=== PATIENT | male | born 1985 | race Caucasian/White ===

== ENCOUNTER 2016-11-05 13:02 | Emergency (ER) | payer BC ==
[2016-11-05 13:12] VITALS: BP 110/70; PULSE 86; RESP 18; TEMP 98.6; O2SAT 100; BMI 23.4
--- NOTE | 2016-11-05 13:28 | ED PDOC ---
Arrival/HPI - General Chief Complaint: Abnormal Skin Integrity Time Seen by Provider: 11/05/16 13:13 Historian: Patient - History of Present Illness Narrative History of Present Illness (Text): 11/05/16 13:13 31 y/o male, no significant pmh, nkda, c/o rt. gluteal pain x 3 days with no fall or trauma. pt. stated that this feels like a pimple, painful to sit on , no fever or chills, no headache or night sweat, no IV drug abuse, no recent IM injection to the site, no headache, no night sweat, no dizziness, no other medical or psychological complaints. Past Medical History - Provider Review Nursing Documentation Reviewed: Yes - Psychiatric Hx Substance Use: No Family/Social History - Physician Review Nursing Documentation Reviewed: Yes Family/Social History: Unknown Family HX Smoking Status: Heavy Smoker > 10 Cigarettes Daily Hx Alcohol Use: Yes Frequency of alcohol use: Socially Hx Substance Use: No Allergies/Home Meds Allergies/Adverse Reactions: Allergies No Known Allergies Allergy (Verified 11/05/16 13:12) Review of Systems - Review of Systems Constitutional: absent: Fatigue, Fevers Eyes: absent: Vision Changes ENT: absent: Hearing Changes Respiratory: absent: SOB, Cough Cardiovascular: absent: Chest Pain Gastrointestinal: absent: Abdominal Pain, Diarrhea, Nausea, Vomiting Skin: Rash, Abscess, Cellulitis. absent: Pruritis, Skin Lesions, Laceration, Ulcer Neurological: absent: Headache, Speech Changes, Facial Droop Physical Exam Vital Signs Reviewed: Yes Vital Signs Temp Pulse Resp BP Pulse Ox 11/05/16 13:09 98.6 F 86 18 110/70 100 Temperature: Afebrile Blood Pressure: Normal Pulse: Regular Respiratory Rate: Normal Appearance: Positive for: Well-Appearing, Non-Toxic, Comfortable Pain Distress: Moderate Mental Status: Positive for: Alert and Oriented X 3 - Systems Exam Head: Present: Atraumatic, Normocephalic Pupils: Present: PERRL Extroacular Muscles: Present: EOMI Conjunctiva: Present: Normal Mouth: Present: Moist Mucous Membranes Neck: Present: Normal Range of Motion Respiratory/Chest: Present: Clear to Auscultation, Good Air Exchange. No: Respiratory Distress, Accessory Muscle Use Cardiovascular: Present: Regular Rate and Rhythm, Normal S1, S2. No: Murmurs Abdomen: Present: Normal Bowel Sounds. No: Tenderness, Distention, Peritoneal Signs Back: Present: Normal Inspection Upper Extremity: Present: Normal Inspection. No: Cyanosis, Edema Lower Extremity: Present: Normal Inspection. No: Edema Neurological: Present: GCS=15, Speech Normal, Motor Func Grossly Intact, Gait Normal, Memory Normal Skin: Present: Warm, Dry, Rashes (rt. gluteal zunilda cheek region visible approx. 4cm diameter erythematous with mild fluctuant, no streaking or ulcer, no regional lymphenapathy. ), Normal Color Psychiatric: Present: Alert, Oriented x 3, Normal Insight, Normal Concentration Medical Decision Making ED Course and Treatment: 11/05/16 13:43 -bedside sonogram confirm there is approx. [id number] underlying abscess with 1.5cm underneath the skin. -sensation intact, motor 5/5, clean with betadine and saline, sterile procedure , #11 blade made 1cm incision wound with approx. 1.5cc purulant abscess drained , irrigated with 30cc of normal saline, 1/4" iodofoam packing, hemostasis obtained, bacitracin and gauze dressing, sensation intact, motor 5/5. -keflex, bactrim ds, motrin -Discharge home with keflex, bactrim ds, motrin, keep the dressing dry and clean for 2 days and return to the ER in 2 days for wound check and packing change, follow up with your own pmd and general surgeon within 4 days, return to the ER for any new or worsening signs or symptoms. - PA / ELECT[employer]IC TECH[employer]OLOGIST / Resident Statement MD/DO has reviewed & agrees with the documentation as recorded. Disposition/Present on Arrival - Present on Arrival Any Indicators Present on Arrival: No History of DVT/PE: No History of Uncontrolled Diabetes: No Urinary Catheter: No History of Decub. Ulcer: No History Surgical Site Infection Following: None - Disposition Have Diagnosis and Disposition been Completed?: Yes Diagnosis: Abscess, Cellulitis Disposition: HOME/ ROUTINE Disposition Time: 13:45 Patient Plan: Discharge Condition: GOOD Discharge Instructions (ExitCare): Cellulitis (ED) Additional Instructions: Discharge home with keflex, bactrim ds, motrin, keep the dressing dry and clean for 2 days and return to the ER in 2 days for wound check and packing change, follow up with your own pmd and general surgeon within 4 days, return to the ER for any new or worsening signs or symptoms. Prescriptions: Cephalexin [cephalexin] 500 mg PO QID #40 cap Ibuprofen [Motrin Tab] 600 mg PO QID #30 tab Sulfamethoxazole/Trimethoprim [Bactrim Ds Tablet] 1 each PO BID #20 tablet Referrals: Sergei Matos MD [Medical Doctor] - Follow up with primary [facility] [place] - Follow up with primary Forms: WORK NOTE
[2016-11-05] MEDS ORDERED: Tmp-Smz 800 mg-160 mg DS Tab PO STA (13:40)
== END 2016-11-05 14:07 | disposition home or self-care (01) ==
LOC: ED 13:02
DX: L02.31 Cutaneous abscess of buttock (principal); L03.317 Cellulitis of buttock

== ENCOUNTER 2016-11-08 10:10 | Emergency (ER) | payer BC ==
[2016-11-08 10:53] VITALS: RESP 18; TEMP 98.8; BMI 22.7
--- NOTE | 2016-11-08 11:04 | ED PDOC ---
Arrival/HPI - General Chief Complaint: Wound Check Time Seen by Provider: 11/08/16 10:11 Historian: Patient - History of Present Illness Narrative History of Present Illness (Text): 11/08/16 11:01 31yo male present to ED for packing removal. He had an I&D here 3days ago and came back to ED today for packing removal. He denies fever, chills, any other complaint. Past Medical History - Provider Review Nursing Documentation Reviewed: Yes - Infectious Disease Hx of Infectious Diseases: None - Psychiatric Hx Substance Use: No - Anesthesia Hx Anesthesia: No Hx Anesthesia Reactions: No Hx Malignant Hyperthermia: No Family/Social History - Physician Review Nursing Documentation Reviewed: Yes Family/Social History: Unknown Family HX Smoking Status: Heavy Smoker > 10 Cigarettes Daily Hx Alcohol Use: Yes Hx Substance Use: No Allergies/Home Meds Allergies/Adverse Reactions: Allergies No Known Allergies Allergy (Verified 11/05/16 13:12) Review of Systems - Physician Review All systems were reviewed & negative as marked: Yes - Review of Systems Constitutional: Normal Eyes: Normal ENT: Normal Respiratory: Normal Cardiovascular: Normal Gastrointestinal: Normal Genitourinary Male: Normal Musculoskeletal: Normal Skin: Other (Packing removal) Neurological: Normal Endocrine: Normal Hemo/Lymphatic: Normal Psychiatric: Normal Physical Exam Vital Signs Reviewed: Yes Vital Signs Temp Pulse Resp BP Pulse Ox 11/08/16 11:09 69 18 124/79 97 11/08/16 10:45 98.8 F 72 18 126/84 99 Temperature: Afebrile Blood Pressure: Normal Pulse: Regular Respiratory Rate: Normal Appearance: Positive for: Well-Appearing, Non-Toxic, Comfortable Pain Distress: None Mental Status: Positive for: Alert and Oriented X 3 - Systems Exam Head: Present: Atraumatic, Normocephalic Pupils: Present: PERRL Extroacular Muscles: Present: EOMI Conjunctiva: Present: Normal Mouth: Present: Moist Mucous Membranes Neck: Present: Normal Range of Motion Respiratory/Chest: Present: Clear to Auscultation, Good Air Exchange. No: Respiratory Distress, Accessory Muscle Use Cardiovascular: Present: Regular Rate and Rhythm, Normal S1, S2. No: Murmurs Abdomen: Present: Normal Bowel Sounds. No: Tenderness, Distention, Peritoneal Signs Back: Present: Normal Inspection Upper Extremity: Present: Normal Inspection. No: Cyanosis, Edema Lower Extremity: Present: Normal Inspection. No: Edema Neurological: Present: GCS=15, CN II-XII Intact, Speech Normal Skin: Present: Warm, Dry, Normal Color, Other (Dressing noted on right buttocks. No surrounding erythema). No: Rashes Psychiatric: Present: Alert, Oriented x 3, Normal Insight, Normal Concentration Medical Decision Making ED Course and Treatment: 11/08/16 11:15 Packing removed. No erythema. No crepitus. Dressed. Disposition/Present on Arrival - Present on Arrival Any Indicators Present on Arrival: No History of DVT/PE: No History of Uncontrolled Diabetes: No Urinary Catheter: No History of Decub. Ulcer: No History Surgical Site Infection Following: None - Disposition Have Diagnosis and Disposition been Completed?: Yes Diagnosis: Abscess packing removal Disposition: HOME/ ROUTINE Disposition Time: 11:05 Patient Plan: Discharge Patient Problems: Current Active Problems Problem Status Onset Abscess packing removal Acute Condition: STABLE Discharge Instructions (ExitCare): Acute Wound Care (ED) Additional Instructions: Keep area clean and dry follow up with your Doctor Referrals: Gem Low, [Primary Care Provider] - Follow up with primary
[2016-11-08 11:10] VITALS: BP 124/79; PULSE 69; O2SAT 97
== END 2016-11-08 11:14 | disposition home or self-care (01) ==
LOC: ED 10:10
DX: Z48.01 Encounter for change or removal of surgical wound dressing (principal)